=== PATIENT | male | born 1945 | race Caucasian/White ===

== ENCOUNTER 2017-02-02 08:17 | Day surgery (SDC) | payer MEDICARE, OTHER ==
--- NOTE | 2017-01-27 13:51 | HP ---
DATE OF ADMISSION: 01/27/2017 HISTORY OF PRESENT ILLNESS: This is the first orthopedic outpatient admission for surgery for this 71-year- old male who is being admitted for outpatient surgical treatment for severe osteoporotic compression fracture with intractable pain. The patient suffered injury approximately 4 to 6 weeks ago, has had no improvement with conservative care and pain medicines. The pain has persisted to the point where the patient's functional activity is less than 20% of normal, his pain scale activity is 9 to 10 and with rest it is 1 to 2. The patient has failed treatment and recent MRI evaluation shows an L1 compression fracture with significant edema involving the whole vertebral body. The patient was seen in the [facility]opedic [facility] and evaluated with the failure of treatment program for the patient. He is now going to be scheduled for outpatient kyphoplasty, fracture stabilization of the osteoporotic compression fracture of L1. Procedure has been outlined to the patient. He understands the risks and complications involved with that and has consented to the surgery. ALLERGIES: No known drug allergies. PAST MEDICAL HISTORY: The patient has a history of psoriasis. He does have thrombocytopenia, unknown origin. He has had some history of blood pressure problems and is currently being treated through the [facility]. PAST SURGICAL HISTORY: Negative. The patient has had no previous surgical experience. REVIEW OF SYSTEMS: The patient is a smoker of 1 pack per day. Alcohol, he consumes 3 to 4 beers per day. The patient denies any blood clot history or bleeding history. PHYSICAL EXAMINATION: GENERAL: On admission today reveals a well-developed and well-nourished 71-year- old male, in [id number] distress. HEAD, EYES, EARS, NOSE, AND THROAT: Normocephalic. NECK: Supple. CHEST: Clear. COR: Regular rate. ABDOMEN: Soft. : Intact. MUSCULOSKELETAL: Examination of the lumbar spine reveals severe pain on direct pressure palpation over the thoracolumbar junction. He has positive paravertebral muscle spasm. Nerve tension signs are negative. RADIOLOGY: MRI evaluation on 12/31/2016, shows an acute compression fracture, osteoporotic, of L1 with edema involving the whole vertebral body. Also, there were generalized degenerative changes of the lumbar spine noted. ASSESSMENT: Acute osteoporotic compression fracture of L1. PLAN: Plan is for the patient to undergo surgical kyphoplasty fracture stabilization. Procedure has been outlined to the patient and family. They understand risks with it and have consented to surgery. MMODAL /[id number]
[~2017-02-02 08:17] MED LIST: Lactated Ringers 1,000 ML IV SCH; Lidocaine 1%/Sod Bicarbonate in NS 8.4% 1 ML Syringe IV PRN; Sodium Chloride 0.9% 10 ML Syringe FLUSH PRN
--- NOTE | 2017-02-02 11:15 | PCM.PREANE ---
Preanesthetic Assessment - Procedure Proposed Procedure: Kyphoplasty - Anesthesia/Transfusion/Family Hx Anesthesia History: Prior Anesthesia Without Reaction Family History of Anesthesia Reaction: No - Review of Systems General: Malaise Pulmonary: No Symptoms Cardiovascular: No Symptoms Gastrointestinal: No symptoms Neurological: Paresthesia (tingling in legs that comes and goes) Other: Reports: Easy Bruising - Physical Assessment NPO Status Date: 02/01/17 NPO Status Time: 20:00 O2 Sat by Pulse Oximetry: 98 Respiratory Rate: 16 Temperature: 37.1 C Vital Signs: Last Vital Signs Temp 37.1 C 02/02/17 10:29 Pulse 77 02/02/17 10:29 Resp 16 02/02/17 10:29 BP 147/89 H 02/02/17 10:29 Pulse Ox 98 02/02/17 08:25 Height: 1.73 m Weight: 89.811 kg ASA Class: 2 Mental Status: Alert & Oriented x3 Airway Class: Mallampati = 4 Dentition: Reports: Dentures (upper), Edentulous (upper), Missing Tooth/Teeth ( missing many lower poor dentition) Thyro-Mental Finger Breadths: 3 Mouth Opening Finger Breadths: 2 ROM/Head Extension: Full Lungs: Clear to auscultation, Normal respiratory effort Cardiovascular: Regular Rate, Regular Rhythm, No Murmurs - Lab Values: Laboratory Last Values WBC 6.08 K/mm3 (4.23-9.07) 02/02/17 08:38 RBC 4.83 M/mm3 (4.63-6.08) 02/02/17 08:38 Hgb 17.1 gm/L (13.7-17.5) 02/02/17 08:38 Hct 49.9 % (40.1-51.0) 02/02/17 08:38 MCV 103.3 fl (79.0-92.2) H 02/02/17 08:38 MCH 35.4 pg (25.7-32.2) H 02/02/17 08:38 MCHC 34.3 g/dl (32.2-35.5) 02/02/17 08:38 RDW Std Deviation 52.8 fL (35.1-43.9) H 02/02/17 08:38 Plt Count 73 K/mm3 (163-337) L 02/02/17 08:38 MPV 11.8 fl (9.4-12.3) 02/02/17 08:38 Neut % (Auto) 56.7 % (34.0-67.9) 02/02/17 08:38 Lymph % (Auto) 29.3 % (21.8-53.1) 02/02/17 08:38 Brule % (Auto) 11.3 % (5.3-12.2) 02/02/17 08:38 Eos % (Auto) 1.8 (0.8-7.0) 02/02/17 08:38 Baso % (Auto) 0.7 % (0.1-1.2) 02/02/17 08:38 Neut # (Auto) 3.45 K/mm3 (1.78-5.38) 02/02/17 08:38 Lymph # (Auto) 1.78 K/mm3 (1.32-3.57) 02/02/17 08:38 Brule # (Auto) 0.69 K/mm3 (0.30-0.82) 02/02/17 08:38 Eos # (Auto) 0.11 K/mm3 (0.04-0.54) 02/02/17 08:38 Baso # (Auto) 0.04 K/mm3 (0.01-0.08) 02/02/17 08:38 Manual Slide Review Abnormal smear 02/02/17 08:38 Blood Type O POSITIVE 02/02/17 08:38 Gel Antibody Screen Negative 02/02/17 08:38 - Allergies Allergies/Adverse Reactions: Allergies Allergy/AdvReac Type Severity Reaction Status Date / Time No Known Allergies Allergy Verified 02/01/17 15:22 PreAnesthesia Questionnaire HEENT History: Reports: Impaired Vision Cardiovascular History: Reports: None Respiratory History: Reports: None Gastrointestinal History: Reports: None Genitourinary History: Reports: None [employer] History: Reports: None Musculoskeletal History: Reports: Arthritis Neurological History: Reports: None Psychiatric History: Reports: None Endocrine/Metabolic History: Reports: None Hematologic History: Reports: Idiopathic Thrombocytopenia, Other (See Below) Other Hematologic History: decreased platelets Immunologic History: Reports: None Oncologic (Cancer) History: Reports: None Dermatologic History: Reports: Psoriasis - Past Surgical History Head Surgeries/Procedures: Reports: None HEENT Surgical History: Reports: Oral Surgery Musculoskeletal Surgical History: Reports: Other (See Below) Other Musculoskeletal Surgeries/Procedures:: L1 compression fracture, lumbar radiculopathy - SUBSTANCE USE Smoking Status *Q: Current Every Day Smoker Tobacco Use Within Last Twelve Months: Cigarettes Days Per Week of Alcohol Use: 7 Number of Drinks Per Day: 6 (ETOH ABUSE) Total Drinks Per Week: 42 Recreational Drug Use History: No - HOME MEDS Home Medications: Home Meds traMADol [Ultram] 1 - 2 tab PO BID PRN 02/01/17 [History] - CURRENT (IN HOUSE) MEDS Current Meds: Current Medications Lactated Ringer's (Ringers, Lactated) 1,000 mls @ 125 mls/hr IV ASDIRECTED DANIELE Stop: 02/02/17 23:00 Lidocaine/Sodium Bicarbonate (Buffered Lidocaine 1% In Ns 8.4%) 0.25 ml IV ONETIME PRN PRN Reason: Prior to IV Start Stop: 02/02/17 18:00 Last Admin: 02/02/17 08:40 Dose: 0.25 ml Sodium Chloride (Saline Flush) 10 ml FLUSH ASDIRECTED PRN PRN Reason: Keep Vein Open Stop: 02/02/17 18:00
[2017-02-02] MEDS ORDERED: Propofol 200 MG/20 ML SDV ONE ×2 (11:17→12:48)
[2017-02-02] MEDS ORDERED: Lidocaine 1% 4 ML ONE (11:19)
[2017-02-02] MEDS ORDERED: ceFAZolin 1 GM Vial ONE ×2 (11:20→11:21)
[2017-02-02] MEDS ORDERED: Midazolam 1 MG/ML 2 ML SDV ONE (11:20)
[2017-02-02] MEDS ORDERED: Ketamine 500 mg/10 ML MDV ONE (11:24)
[2017-02-02] MEDS ORDERED: Vancomycin 1 GM SDV ONE (11:38)
[2017-02-02] MEDS ORDERED: Lidocaine 1% with EPINEPHrine 1:100,000 20 ML MDV ONE (11:39)
[2017-02-02] MEDS ORDERED: Iopamidol 612 MG/ML 50 ML SDV ONE (11:39)
[2017-02-02] MEDS ORDERED: Ketorolac 15 MG/ML SDV IVPUSH PRN (11:41)
[2017-02-02] MEDS ORDERED: traMADol 50 MG Tab PO PRN (11:41)
[2017-02-02] MEDS ORDERED: Cyclobenzaprine 10 MG Tab PO PRN (11:41)
[2017-02-02] MEDS ORDERED: Ondansetron 4 MG/2 ML SDV IVPUSH PRN ×2 (11:41→12:55)
[2017-02-02] MEDS ORDERED: fentaNYL 100 MCG/2 ML SDV ONE (11:43)
[2017-02-02] MEDS ORDERED: fentaNYL 100 MCG/2 ML SDV IVPUSH PRN (12:55)
[2017-02-02] MEDS ORDERED: diphenhydrAMINE 50 MG/ML SDV IVPUSH PRN (12:55)
[2017-02-02 13:13] VITALS: BP 134/71
--- NOTE | 2017-02-02 13:13 | PCM48HPAN ---
Post Anesthesia Note - EVALUATION WITHIN 48HRS OF ANESTHETIC Vital Signs in Normal Range: Yes Patient Participated in Evaluation: Yes Respiratory Function Stable: Yes Airway Patent: Yes Cardiovascular Function Stable: Yes Hydration Status Stable: Yes Pain Control Satisfactory: Yes Nausea and Vomiting Control Satisfactory: Yes Mental Status Recovered: Yes
[2017-02-02] MEDS ORDERED: Meperidine PF 50 MG/ML Syringe IVPUSH PRN (14:00)
--- NOTE | 2017-02-03 09:10 | CR ---
Spine: Multiple fluoroscopic spot views were obtained utilizing C-arm device centered to L1. Study shows vertebroplasty procedure within previously noted compression deformity of L1. Fluoroscopy time given as 426.4 seconds. Impression: 1. Procedural study as described above. Diagnostic code #1
--- NOTE | 2017-02-03 09:42 | OR ---
DATE OF OPERATION: 02/02/2017 SURGEON: Gee Gracia MD PREOPERATIVE DIAGNOSIS: Acute osteoporotic compression fracture of L1 with intractable pain. POSTOPERATIVE DIAGNOSIS: Acute osteoporotic compression fracture of L1 with intractable pain. OPERATION PERFORMED: 1. Kyphoplasty, fracture stabilization, L1 vertebral body. 2. Biopsy of L1 vertebral body. ANESTHESIA: Sedation with local. DESCRIPTION OF PROCEDURE: The patient was taken to the operative room in supine position, placed under a light sedation, and transferred to the operating table in a prone position. Once the patient's position was determined and in place, fluoroscopy was brought in and the level of surgery at the L1 level was identified. Skin markings were placed over the pedicles on the right and left sides at L1. This was confirmed in lateral, and the operation proceeded with prepping and draping of the lumbar spine by standard technique. After prepping and draping, the fluoroscopy was then in place on AP. Local infiltration was then carried out over the pedicles of L1 on both the right and left sides. The operation proceeded with insertion of the kyphoplasty instrumentation, under fluoroscopic guidance, beginning on the right side with penetration into the posterior cortex of vertebral body. The balloon inflation was carried out and was found to have more balloon inflation inferiorly than superiorly. It was opted to ring in the curette to help loosen the bone superiorly, and this was carried out on both the right and left sides. Similar approach was carried out on the left-sided pedicle. The final balloon position was in the central portion of the vertebral body. The operation then proceeded with placement of cement. 4 mL of cement was placed on each side, totalling 8 mL of cement. This gave a very good fill throughout the vertebral body with good solid fixation. Once the cement had hardened, the operation proceeded with removal of the instruments. The skin was then closed with 3-0 Prolene. Hardcopy x-rays were taken in AP and lateral. The patient tolerated this procedure well. He left the operating room in stable condition to his room for recovery. ESTIMATED BLOOD LOSS: MMODAL /[id number]
== END 2017-02-02 13:55 | disposition home or self-care (01) ==
LOC: JD.SDS 08:17
PROVIDERS: ATTEND Specialist
DX: M80.88XA Other osteoporosis with current pathological fracture, vertebra(e), initial encounter for fracture (principal); D69.6 Thrombocytopenia, unspecified; M19.90 Unspecified osteoarthritis, unspecified site; M54.16 Radiculopathy, lumbar region; L40.9 Psoriasis, unspecified; F17.210 Nicotine dependence, cigarettes, uncomplicated; Z79.899 Other long term (current) drug therapy; Z98.890 Other specified postprocedural states; M54.5 Low back pain; M54.2 Cervicalgia
CPT/HCPCS: 22514; 36415; 36430; 85025; 86850; 86900; 86901; 88305; 88311; C1713; J0690; J2250; J3010; J3370; J7120; P9034; Q9967; 01936; J2704